=== PATIENT | female | born 1995 | race Asian ===

== ENCOUNTER 2019-01-05 21:46 | Emergency (ER) | payer OTHER ==
[2019-01-05] MEDS ORDERED: Tetracaine 0.5% OPTH.SOL 4 ML* 1 DROP BTL LEFT EYE ONE (22:07)
[2019-01-05] MEDS ORDERED: Fluorescein Sodium TOPICAL* 1 MG TEST STRIP OPHTHALMIC ONE (22:07)
--- NOTE | 2019-01-05 22:10 | UC ---
Eye Complaint HPI - HPI Summary HPI Summary: 23-year-old woman comes in with a chief complaint of left eye irritation. She reports about 5:00 today removing a contact lens from her left eye and noticing that it was torn. She believes piece was left in the left eye. Left eye feels irritated. She's been using glasses since that time. - History of Current Complaint Stated Complaint: EYE ISSUE Time Seen by Provider: 01/05/19 22:02 - Allergies/Home Medications Allergies/Adverse Reactions: Allergies Allergy/AdvReac Type Severity Reaction Status Date / Time dairy Allergy Diarrhea Uncoded 01/05/19 22:25 Home Medications: Home Medications Fluticasone NASAL SPRAY 50MCG* [Flonase NASAL SPRAY 50MCG*] 1 spray INH DAILY PRN 01/05/19 [History Confirmed 01/05/19] Loratadine/Pseudoephedrine [Claritin-D 12 Hour Tablet] 1 tab PO DAILY 01/05/19 [ History Confirmed 01/05/19] PMH/Surg Hx/FS Hx/Imm Hx Previously Healthy: Yes - Family History Known Family History: Positive: Non-Contributory Review of Systems All Other Systems Reviewed And Are Negative: Yes Constitutional: Positive: Negative Skin: Positive: Negative Eyes: Positive: Other - SEE HPI ENT: Positive: Negative Respiratory: Positive: Negative Cardiovascular: Positive: Negative Gastrointestinal: Positive: Negative Motor: Positive: Negative Neurovascular: Positive: Negative Musculoskeletal: Positive: Negative Neurological: Positive: Negative Psychological: Positive: Negative Is Patient Immunocompromised?: No Physical Exam Triage Information Reviewed: Yes Appearance: Well-Appearing, No Pain Distress, Well-Nourished Vital Signs Reviewed: Yes Eyes: Positive: Other: - Eye exam with tetracaine and fluorescein stain; I did not see any foreign body or corneal abrasion. PERRLA EOMI. There is some scleral injection. Only watery drainage from the eye. No hyphema Globe is intact. Neck: Positive: Supple Respiratory: Positive: No respiratory distress Musculoskeletal: Positive: Strength Intact, ROM Intact Neurological: Positive: Alert Psychological: Positive: Age Appropriate Behavior Skin Exam: Normal Eye Complaint Course/Dx - Course Course Of Treatment: On floor seen stain exam I did not find any foreign body or corneal abrasion. Go to treat prophylactically with tobramycin. The plan is if her eye does not completely improved by tomorrow she can follow up with ophthalmology. - Differential Dx/Diagnosis Provider Diagnosis: Left eye pain Discharge ED - Sign-Out/Discharge Documenting (check all that apply): Patient Departure All imaging exams completed and their final reports reviewed: No Studies - Discharge Plan Condition: Stable Disposition: HOME Patient Education Materials: Eye Foreign Body (ED), Eye Pain (ED) Referrals: [facility] [Provider Group] Valdez Magallon MD [Medical Doctor] - Additional Instructions: FOLLOW UP WITH OPHTHALMOLOGY IF NOT COMPLETELY IMPROVED. GET RECHECKED SOONER IF YOUR CONDITION WORSENS OR ANY QUESTIONS OR CONCERNS. - Billing Disposition and Condition Condition: STABLE Disposition: Home
[2019-01-05 22:25] VITALS: BP 114/66
[2019-01-05] MEDS ORDERED: Tobramycin 0.3% OPHTH.SOL* 5 ML BOT (regular eye drops) LEFT EYE ONE (22:25)
== END 2019-01-05 22:40 | disposition home or self-care (01) ==
LOC: UCEAST 21:46
DX: H57.12 Ocular pain, left eye (principal)
CPT/HCPCS: 99202; A9270-GY; G0463